=== PATIENT | female | born 1980 | race Caucasian/White ===

== ENCOUNTER 2016-11-22 20:38 | Emergency (ER) | payer MEDICAID ==
[2016-11-22] MEDS ORDERED: SODIUM CHLORIDE 0.9% 1,000 ML IV ONE (21:49)
== END 2016-11-22 23:15 | disposition home or self-care (01) ==
DX: O21.0 Mild hyperemesis gravidarum (principal)

== ENCOUNTER 2016-12-12 14:31 | Emergency (ER) | payer MEDICAID ==
[2016-12-12] MEDS ORDERED: FLUCONAZOLE 100 MG TABLET PO STA (17:18)
[2016-12-12] MEDS ORDERED: FLUCONAZOLE 100 MG TABLET ONE (17:27)
== END 2016-12-12 17:31 | disposition home or self-care (01) ==
DX: O99.89 Other specified diseases and conditions complicating pregnancy, childbirth and the puerperium (principal); R10.9 Unspecified abdominal pain; O98.811 Other maternal infectious and parasitic diseases complicating pregnancy, first trimester; B37.3 Candidiasis of vulva and vagina; Z3A.00 Weeks of gestation of pregnancy not specified; O99.331 Smoking (tobacco) complicating pregnancy, first trimester; F17.200 Nicotine dependence, unspecified, uncomplicated; Z87.442 Personal history of urinary calculi
CPT/HCPCS: 81001; 81025; 87210; 87491; 87591; 99283; A9270

== ENCOUNTER 2016-12-19 12:26 | Outpatient (CLI) | payer MEDICAID | END 2016-12-19 12:27 | disposition home or self-care (01) | DX: Z36 Encounter for antenatal screening of mother (principal) ==

== ENCOUNTER 2017-07-24 20:34 | Emergency (ER) | payer MEDICAID ==
[2017-07-24 21:02] LABS: BILIRUBIN,URINE NEGATIVE (NEGATIVE)
[2017-07-24 21:04] LABS: HCG UR QUAL NEGATIVE; UA w/ MICROSCOPIC CHARGE YES
[2017-07-24 21:13] LABS: UR CULTURE IF IND NOT INDICATED; WBC,URINE >25 /HPF (0-5)
[2017-07-24] MEDS ORDERED: SODIUM CHLORIDE 0.9% 1,000 ML IV STA (21:16)
[2017-07-24 21:27] LABS: BASOPHILS # (AUTO) 0.1 10^3/uL (0.0-0.1); BASOPHILS % (AUTO) 0.5 %; EOSINOPHILS % (AUTO) 0.1 %; HCT - HEMATOCRIT 39.3 % (37.0-47.0); HGB - HEMOGLOBIN 13.2 g/dL (12.0-16.0); LYMPHOCYTES % (AUTO) 6.7 %; MEAN CORPUSCULAR HEMOGLOBIN 29.7 pg (27.0-31.0); MEAN CORPUSCULAR HGB CONC 33.6 g/dL (32.0-36.0); MEAN CORPUSCULAR VOLUME 88.3 fL (81.0-99.0); MEAN PLATELET VOLUME 7.1 fL (7.9-10.8); MONOCYTES % (AUTO) 6.5 %; NEUTROPHILS # (AUTO) 13.2 10^3/uL (1.5-6.6); NEUTROPHILS % (AUTO) 86.2 %; RED BLOOD COUNT 4.45 10^6/uL (4.20-5.40); RED CELL DISTRIBUTION WIDTH 13.6 % (12.0-15.0); UNCORRECTED WHITE BLOOD COUNT 15.3 x10^3/uL; WHITE BLOOD COUNT 15.3 x10^3/uL (4.8-10.8)
--- NOTE | 2017-07-24 21:33 | ED Physician Documentation ---
PD HPI ABD PAIN - Stated complaint Stated Complaint: LEFT SIDE ABD PX - Chief complaint Chief Complaint: Abd Pain - History obtained from History obtained from: Patient - History of Present Illness Timing - onset: Last night Pain level now: 8 Quality: Pain Location: LUQ, Other Radiation: Left flank Improved by: Laying still Worsened by: Moving Associated symptoms: Fever (subjective (did not take temperature at home, but sweats and chills, feels like she might have had fevers today)), Nausea. 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 denies: Vomiting : reports: Frequency. denies: Dysuria Musculoskeletal: reports: Back pain PD PAST MEDICAL HISTORY - Past Medical History Past Medical History: Yes : Kidney stones - Past Surgical History Past Surgical History: Yes Derm: Skin cancer surgery - Present Medications Home Medications: Ambulatory Orders Medication Instructions Recorded Confirmed Ciprofloxacin HCl [Cipro] 500 mg PO BID #19 tablet 07/24/17 - Allergies Allergies/Adverse Reactions: Allergies Allergy/AdvReac Type Severity Reaction Status Date / Time amoxicillin Allergy Anaphylaxis Verified 07/24/17 20:42 Penicillins Allergy Anaphylaxis Verified 07/24/17 20:42 - Social History Does the pt smoke?: Yes Smoking Status: Current every day smoker Does the pt drink ETOH?: No Does the pt have substance abuse?: No - Immunizations Immunizations are current?: Yes PD ED PE NORMAL - Vitals Vital signs reviewed: Yes - General General: Alert and oriented X 3, Well developed/nourished, Other (appears uncomfortable) - HEENT HEENT: Moist mucous membranes - Neck Neck: Supple, no meningeal sign - Cardiac Cardiac: No murmur - Respiratory Respiratory: No respiratory distress - Abdomen Abdomen: Soft, Non distended, Other (mild LUQ tenderness without rebound or guarding) - Extremities Extremities: No edema PD ED PE EXPANDED - Cardiac Cardiac: Tachy, Regular Rhythm - Back Back: CVA TTP left Results - Vitals Vitals: Vital Signs - 24 hr 07/24/17 07/24/17 07/24/17 20:37 22:33 23:36 Temperature 37.7 C H 36.9 C Heart Rate 118 H Respiratory 19 17 16 Rate Blood Pressure 128/69 O2 Saturation 99 07/25/17 00:06 Temperature Heart Rate 109 H Respiratory 15 Rate Blood Pressure 120/69 O2 Saturation 97 Oxygen O2 Source Room air - Labs Labs: Laboratory Tests 07/24/17 07/24/17 07/24/17 21:00 21:24 21:24 WBC 15.3 H RBC 4.45 Hgb 13.2 Hct 39.3 MCV 88.3 MCH 29.7 MCHC 33.6 RDW 13.6 Plt Count 292 MPV 7.1 L Neut # 13.2 H Lymph # 1.0 L [place] # 1.0 Eos # 0.0 Baso # 0.1 Absolute Nucleated RBC 0.00 Nucleated RBCs 0.0 Sodium 135 Potassium 3.6 Chloride 103 Carbon Dioxide 25 Anion Gap 7.0 BUN 6 Creatinine 0.7 Estimated GFR (MDRD) 95 Glucose 103 H Calcium 8.9 Urine Color YELLOW Urine Clarity CLOUDY Urine pH 7.0 Ur Specific [place] 1.010 Urine Protein 100 H Urine Glucose (UA) NEGATIVE Urine Ketones NEGATIVE Urine Occult Blood LARGE H Urine Nitrite POSITIVE H Urine Bilirubin NEGATIVE Urine Urobilinogen 0.2 (NORMAL) Ur Leukocyte Esterase MODERATE H Urine RBC 6-10 H Urine WBC >25 H Ur Squamous Epith Cells MOD Squamous H Urine Bacteria Moderate H Ur Microscopic Review INDICATED Urine Culture Comments NOT INDICATED Urine HCG, Qual NEGATIVE 07/24/17 22:12 WBC RBC Hgb Hct MCV MCH MCHC RDW Plt Count MPV Neut # Lymph # [place] # Eos # Baso # Absolute Nucleated RBC Nucleated RBCs Sodium Potassium Chloride Carbon Dioxide Anion Gap BUN Creatinine Estimated GFR (MDRD) Glucose Calcium Urine Color YELLOW Urine Clarity CLOUDY Urine pH 7.5 Ur Specific [place] 1.015 Urine Protein 100 H Urine Glucose (UA) NEGATIVE Urine Ketones NEGATIVE Urine Occult Blood LARGE H Urine Nitrite POSITIVE H Urine Bilirubin NEGATIVE Urine Urobilinogen 0.2 (NORMAL) Ur Leukocyte Esterase LARGE H Urine RBC 11-25 H Urine WBC >25 H Ur Squamous Epith Cells RARE Squamous Urine Bacteria Few Ur Microscopic Review INDICATED Urine Culture Comments Urine HCG, Qual - Rads (name of study) CT A/P Radiology: Prelim report reviewed, See rad report PD MEDICAL DECISION MAKING - ED course Complexity details: reviewed old records, reviewed results, re-evaluated patient , considered differential, d/w patient Departure - Departure Disposition: 01 Home, Self Care Clinical Impression: Pyelonephritis Condition: Good Instructions: ED Kidney Infec Female Prescriptions: Ciprofloxacin HCl [Cipro] 500 mg PO BID #19 tablet Comments: Follow up with your primary care physician in 2-3 days if symptoms are not improving Discharge Date/Time: 07/25/17 00:38
[2017-07-24 21:36] LABS: CALCIUM 8.9 mg/dL (8.5-10.3); CREATININE 0.7 mg/dL (0.4-1.0); POTASSIUM 3.6 mmol/L (3.5-5.0)
[2017-07-24 22:17] LABS: BILIRUBIN,URINE NEGATIVE (NEGATIVE); PH,URINE 7.5 PH (5.0-7.5)
[2017-07-24 22:18] LABS: UA w/ MICROSCOPIC CHARGE YES
[2017-07-24 22:25] LABS: WBC,URINE >25 /HPF (0-5)
--- NOTE | 2017-07-24 22:38 | CT Preliminary Report ---
Exam: CT Abdomen/Pelvis W/O IMPRESSION: 1. Punctate stone near the left UVJ may be a phlebolith or a nonobstructing distal ureteral stone. 2. No hydronephrosis. No hydroureter. 3. Punctate nonobstructing right lower kidney stone. 4. No bowel obstruction. Appendix is normal. [facility] SITE ID: [id number]
--- NOTE | 2017-07-24 22:52 | CT Report ---
EXAM: CT ABDOMEN AND PELVIS (CT KUB) EXAM DATE: 07/24/2017 10:07 PM. CLINICAL HISTORY: Left-sided flank pain. COMPARISONS: None. TECHNIQUE: Routine axial helical CT imaging was performed through the abdomen and pelvis without IV c ontrast. Reconstructions: Coronal and sagittal. In accordance with CT protocol optimization, one or more of the following dose reduction techniques w ere utilized for this exam: automated exposure control, adjustment of mA and/or KV based on patient s ize, or use of iterative reconstructive technique. FINDINGS: Right Kidney/Ureter: Punctate right lower kidney stone noted.. No hydronephrosis or hydroureter. No d efinite renal mass within the confines of a non-contrast exam. Left Kidney/Ureter: No intrarenal stones. No definite hydronephrosis or hydroureter. There is a punct ate calcification near the left UVJ, which could represent a phlebolith or a potential nonobstructing left distal ureteral stone. No definite renal mass within the confines of a non-contrast exam. Abdominal Solid Organs: Abdominal parenchymal organs are without significant abnormality within the c onfines of a noncontrast exam. Bowel: No evidence of bowel obstruction. Appendix: Normal. Lymph Nodes: No definite pathologic lymphadenopathy. Fluid: No significant ascites. Vasculature: Normal caliber aorta. Pelvis: No bladder stones. Visualized pelvic organs are without significant abnormality within the co nfines of a noncontrast exam. Bones: No definite suspicious bony lesions demonstrated. Lower Chest: No significant lung base consolidation or effusion. IMPRESSION: 1. Punctate calcification near the left UVJ may be a phlebolith or a nonobstructing distal ureteral s tone. 2. No hydronephrosis. No hydroureter. 3. Punctate nonobstructing right lower kidney stone. 4. No bowel obstruction. Appendix is normal. [facility] Referring Provider Line: [phone] SITE ID: [id number]
[2017-07-24] MEDS ORDERED: CIPROFLOXACIN 400 MG/200 ML 200 ML IV ONE ×2 (23:11→23:19)
[2017-07-25 00:07] VITALS: BP 120/69
[2017-07-25] MEDS ORDERED: IBUPROFEN 600 MG TABLET PO STA (00:22)
[2017-07-25] MEDS ORDERED: IBUPROFEN 600 MG TABLET PO ONE (00:27)
== END 2017-07-25 00:38 | disposition home or self-care (01) ==
LOC: ED 20:34
DX: N12 Tubulo-interstitial nephritis, not specified as acute or chronic (principal); F17.200 Nicotine dependence, unspecified, uncomplicated; Z87.442 Personal history of urinary calculi
CPT/HCPCS: 36415; 74176; 80048; 81001; 81025; 85025; 96361; 96365; 99284; A9270; 81003; 87086

== ENCOUNTER 2017-07-26 14:57 | Emergency (ER) | payer MEDICAID ==
[2017-07-26] MEDS ORDERED: HYDROmorphone 1 MG/ML SYRINGE IVP STA (17:06)
[2017-07-26] MEDS ORDERED: SODIUM CHLORIDE 0.9% 1,000 ML IV ONE (17:06)
[2017-07-26] MEDS ORDERED: ONDANSETRON 4 MG/2 ML VIAL IVP STA (17:06)
--- NOTE | 2017-07-26 17:09 | ED Physician Documentation ---
PD HPI ABD PAIN - Stated complaint Stated Complaint: L SIDE ABD PX - Chief complaint Chief Complaint: Abd Pain - History obtained from History obtained from: Patient - History of Present Illness Timing - onset: Other (36-year-old woman with history of renal colic and repair of a ruptured kidney a few years ago presents with 3 days of left flank and abdominal pain associated with fevers, chills, nausea. She was seen here 2 days ago, but diagnosed with pyelonephritis by urinalysis and CT, the CT did demonstrate a possible left distal ureteral stone but without signs of obstruction. There is no culture data in the computer. She is not particularly worse but she is not better either, she has no appetite, is nauseous, also constipated now. Continues to have the pain.) Review of Systems Constitutional: reports: Chills, Fatigue. denies: Fever Cardiac: denies: Chest pain / pressure, Palpitations Respiratory: denies: Dyspnea, Cough GI: reports: Abdominal Pain, Nausea, Vomiting, Constipation. denies: Diarrhea : denies: Dysuria PD PAST MEDICAL HISTORY - Past Medical History Past Medical History: Yes : Kidney stones - Past Surgical History Past Surgical History: Yes Derm: Skin cancer surgery - Present Medications Home Medications: Ambulatory Orders Medication Instructions Recorded Confirmed Ciprofloxacin HCl [Cipro] 500 mg PO BID #19 tablet 07/24/17 07/26/17 HYDROcod/ACETAM 5/325 [[place] 5/325] 1 - 2 ea PO Q6H PRN #15 tablet 07/26/17 Ondansetron HCl [Zofran] 4 mg PO Q6H PRN #10 tablet 07/26/17 Sulfamethoxazole/Trimethoprim 1 each PO BID 7 Days 07/26/17 [Sulfamethoxazole-Tmp Ds Tablet] - Allergies Allergies/Adverse Reactions: Allergies Allergy/AdvReac Type Severity Reaction Status Date / Time amoxicillin Allergy Anaphylaxis Verified 07/26/17 15:20 Penicillins Allergy Anaphylaxis Verified 07/26/17 15:20 - Social History Does the pt smoke?: Yes Smoking Status: Current every day smoker Does the pt drink ETOH?: No Does the pt have substance abuse?: No - Family History Family history: reports: Non contributory - Immunizations Immunizations are current?: Yes - POLST Patient has POLST: No PD ED PE NORMAL - Vitals Vital signs reviewed: Yes - General General: Alert and oriented X 3, No acute distress - HEENT HEENT: PERRL, EOMI - Neck Neck: Supple, no meningeal sign, No bony TTP - Cardiac Cardiac: RRR, No murmur - Respiratory Respiratory: No respiratory distress, Clear bilaterally - Abdomen Abdomen: Other (Mild left-sided abdominal tenderness without surgical signs, also mild left flank tenderness) - Back Back: No spinal TTP - Derm Derm: Normal color, Warm and dry - Extremities Extremities: No edema, No calf tenderness / cord - Neuro Neuro: Alert and oriented X 3, Normal speech - Psych Psych: Normal mood, Normal affect Results - Vitals Vitals: Vital Signs - 24 hr 07/26/17 15:16 Temperature 36.5 C Heart Rate 85 Respiratory 18 Rate Blood Pressure 98/62 O2 Saturation 100 Oxygen O2 Source Room air - Labs Labs: Laboratory Tests 07/26/17 07/26/17 07/26/17 17:11 17:25 17:25 WBC 9.0 RBC 4.43 Hgb 13.3 Hct 39.2 MCV 88.6 MCH 29.9 MCHC 33.8 RDW 13.2 Plt Count 253 MPV 6.8 L Neut # 6.4 Lymph # 1.5 [place] # 1.0 Eos # 0.0 Baso # 0.1 Absolute Nucleated RBC 0.00 Nucleated RBCs 0.0 Sodium 136 Potassium 3.5 Chloride 104 Carbon Dioxide 24 Anion Gap 8.0 BUN 6 Creatinine 0.5 Estimated GFR (MDRD) 140 Glucose 97 Calcium 8.5 Total Bilirubin 0.8 AST 13 ALT 11 Alkaline Phosphatase 63 Total Protein 7.1 Albumin 4.0 Globulin 3.1 Albumin/Globulin Ratio 1.3 Lipase 15 L Urine Color YELLOW Urine Clarity HAZY Urine pH 6.0 Ur Specific [place] 1.025 Urine Protein NEGATIVE Urine Glucose (UA) NEGATIVE Urine Ketones 40 H Urine Occult Blood SMALL H Urine Nitrite NEGATIVE Urine Bilirubin NEGATIVE Urine Urobilinogen 0.2 (NORMAL) Ur Leukocyte Esterase TRACE H Urine RBC 6-10 H Urine WBC >25 H Urine WBC Clumps PRESENT Ur Squamous Epith Cells MANY Squamous H Urine Bacteria Few Urine Mucus Marked Strands Ur Microscopic Review INDICATED Urine Culture Comments NOT INDICATED 07/26/17 17:54 WBC RBC Hgb Hct MCV MCH MCHC RDW Plt Count MPV Neut # Lymph # [place] # Eos # Baso # Absolute Nucleated RBC Nucleated RBCs Sodium Potassium Chloride Carbon Dioxide Anion Gap BUN Creatinine Estimated GFR (MDRD) Glucose Calcium Total Bilirubin AST ALT Alkaline Phosphatase Total Protein Albumin Globulin Albumin/Globulin Ratio Lipase Urine Color YELLOW Urine Clarity CLEAR Urine pH 6.0 Ur Specific [place] >=1.030 H Urine Protein TRACE Urine Glucose (UA) NEGATIVE Urine Ketones >=80 H Urine Occult Blood SMALL H Urine Nitrite NEGATIVE Urine Bilirubin NEGATIVE Urine Urobilinogen 0.2 (NORMAL) Ur Leukocyte Esterase NEGATIVE Urine RBC 0-5 Urine WBC 6-10 H Urine WBC Clumps Ur Squamous Epith Cells MOD Squamous H Urine Bacteria Few Urine Mucus Moderate Strands Ur Microscopic Review INDICATED Urine Culture Comments NOT INDICATED PD MEDICAL DECISION MAKING - ED course ED course: 36-year-old woman with recent diagnosis of pyelonephritis, no culture data available presents with persistent generalized symptoms of fatigue, flank pain, nausea, and dehydration. She felt better after the administration of IV fluids , Dilaudid, and Zofran here. Initial urinalysis was contaminated this was followed by an in and out cath after the patient requested it, "I always have skin cells in my urine." This also had squamous cells in it but I ordered for to be cultured. Regardless we will switch her antibiotics. Her white blood cell count is better than the other day and she needs a work note and medications for her symptoms. Departure - Departure Disposition: 01 Home, Self Care Clinical Impression: Pyelonephritis Condition: Good Record reviewed to determine appropriate education?: Yes Instructions: Pyelonephritis Dc Prescriptions: HYDROcod/ACETAM 5/325 [[place] 5/325] 1 - 2 ea PO Q6H PRN #15 tablet PRN Reason: Pain Sulfamethoxazole/Trimethoprim [Sulfamethoxazole-Tmp Ds Tablet] 1 each PO BID 7 Days Ondansetron HCl [Zofran] 4 mg PO Q6H PRN #10 tablet PRN Reason: Nausea / Vomiting Comments: Stop the antibiotic you were on (ciprofloxacin/Cipro) and start the new antibiotic. Return if worse. Otherwise you should be feeling better over the next couple of days. Follow-up with your doctor early next week. Forms: Activity restrictions
[2017-07-26 17:16] LABS: BILIRUBIN,URINE NEGATIVE (NEGATIVE)
[2017-07-26 17:26] LABS: UA w/ MICROSCOPIC CHARGE YES; UR CULTURE IF IND NOT INDICATED; WBC,URINE >25 /HPF (0-5)
[2017-07-26 17:33] LABS: BASOPHILS # (AUTO) 0.1 10^3/uL (0.0-0.1); BASOPHILS % (AUTO) 1.1 %; EOSINOPHILS % (AUTO) 0.5 %; HCT - HEMATOCRIT 39.2 % (37.0-47.0); HGB - HEMOGLOBIN 13.3 g/dL (12.0-16.0); LYMPHOCYTES # (AUTO) 1.5 10^3/uL (1.5-3.5); LYMPHOCYTES % (AUTO) 16.5 %; MEAN CORPUSCULAR HEMOGLOBIN 29.9 pg (27.0-31.0); MEAN CORPUSCULAR HGB CONC 33.8 g/dL (32.0-36.0); MEAN CORPUSCULAR VOLUME 88.6 fL (81.0-99.0); MEAN PLATELET VOLUME 6.8 fL (7.9-10.8); MONOCYTES % (AUTO) 10.8 %; NEUTROPHILS # (AUTO) 6.4 10^3/uL (1.5-6.6); NEUTROPHILS % (AUTO) 71.1 %; RED BLOOD COUNT 4.43 10^6/uL (4.20-5.40); RED CELL DISTRIBUTION WIDTH 13.2 % (12.0-15.0)
[2017-07-26] MEDS ORDERED: HYDROmorphone 1 MG/ML SYRINGE ONE (17:34)
[2017-07-26] MEDS ORDERED: ONDANSETRON 4 MG/2 ML VIAL ONE (17:34)
[2017-07-26 17:47] LABS: ALBUMIN/GLOBULIN RATIO 1.3 (1.0-2.2); BILIRUBIN,TOTAL 0.8 mg/dL (0.2-1.0); CALCIUM 8.5 mg/dL (8.5-10.3); CREATININE 0.5 mg/dL (0.4-1.0); POTASSIUM 3.5 mmol/L (3.5-5.0); TOTAL PROTEIN 7.1 g/dL (6.7-8.2)
[2017-07-26 18:13] LABS: BILIRUBIN,URINE NEGATIVE (NEGATIVE); UA w/ MICROSCOPIC CHARGE YES
[2017-07-26 18:24] LABS: UR CULTURE IF IND NOT INDICATED
[2017-07-26] MEDS ORDERED: SULFAMETH/TRIMETH DS 800/160 MG TABLET PO STA (18:45)
[2017-07-26] MEDS ORDERED: SULFAMETH/TRIMETH DS 800/160 MG TABLET PO ONE (18:54)
[2017-07-26 19:00] VITALS: BP 109/68
== END 2017-07-26 18:59 | disposition home or self-care (01) ==
LOC: ED 14:57
DX: N12 Tubulo-interstitial nephritis, not specified as acute or chronic (principal); F17.200 Nicotine dependence, unspecified, uncomplicated; Z87.442 Personal history of urinary calculi
CPT/HCPCS: 36415; 51701; 80053; 81001; 83690; 85025; 87086; 96374; 96375; 99283; 99284; A9270; J1170; 81003

== ENCOUNTER 2019-08-15 16:30 | Emergency (ER) | payer MEDICAID ==
[2019-08-15 16:53] LABS: BILIRUBIN,URINE NEGATIVE (NEGATIVE); GLUCOSE, URINE (UA) NEGATIVE (NEGATIVE); KETONES,URINE (UA) NEGATIVE (NEGATIVE); LEUKOCYTE ESTERASE, URINE MODERATE (NEGATIVE); NITRITE,URINE POSITIVE (NEGATIVE); OCCULT BLOOD,URINE MODERATE (NEGATIVE); PROTEIN,URINE TRACE mg/dL (NEGATIVE); UROBILINOGEN,URINE 0.2 (NORMAL) E.U./dL (NORMAL)
[2019-08-15 16:56] LABS: CLARITY,URINE CLEAR (CLEAR); HCG UR QUAL NEGATIVE
[2019-08-15 17:12] LABS: RBC,URINE 0-5 /HPF (0-5); SQUAMOUS EPITHELIAL CELL,UR NONE SEEN (<= Few)
[2019-08-15 17:13] LABS: BACTERIA,URINE Rare /HPF (None Seen)
[2019-08-15] MEDS ORDERED: SODIUM CHLORIDE 0.9% 1,000 ML IV ONE (18:28)
[2019-08-15] MEDS ORDERED: ONDANSETRON 4 MG/2 ML VIAL IVP STA ×2 (18:28→20:42)
[2019-08-15] MEDS ORDERED: HYDROmorphone 1 MG/ML CARPUJECT IVP STA ×2 (18:28→20:42)
[2019-08-15] MEDS ORDERED: CIPROFLOXACIN 400 MG/200 ML 200 ML IV ONE (18:31)
--- NOTE | 2019-08-15 18:31 | ED Physician Documentation ---
PD HPI ABD PAIN - Stated complaint Stated Complaint: R SIDE PX - Chief complaint Chief Complaint: Abd Pain - History obtained from History obtained from: Patient - History of Present Illness Timing - onset: Other (2 to 3 days of right flank pain associated with fevers chills and body aches. No specific urinary complaints. She has a history of renal colic with renal rupture a few years ago.) Review of Systems Ten Systems: 10 systems reviewed and negative Constitutional: reports: Fever, Chills, Myalgias, Fatigue GI: reports: Nausea, Vomiting. denies: Abdominal Pain, Diarrhea : denies: Dysuria, Frequency PD PAST MEDICAL HISTORY - Past Medical History : Kidney stones - Past Surgical History Past Surgical History: Yes Derm: Skin cancer surgery - Present Medications Home Medications: Ambulatory Orders Medication Instructions Recorded Confirmed Ciprofloxacin HCl [Cipro] 500 mg PO BID #19 tablet 07/24/17 07/26/17 HYDROcod/ACETAM 5/325 [[place] 5/325] 1 - 2 ea PO Q6H PRN #15 tablet 07/26/17 Ondansetron HCl [Zofran] 4 mg PO Q6H PRN #10 tablet 07/26/17 Sulfamethoxazole/Trimethoprim 1 each PO BID 7 Days tablet 07/26/17 [Sulfamethoxazole-Tmp Ds Tablet] Ciprofloxacin HCl [Cipro] 500 mg PO BID #20 tablet 08/15/19 Hydrocodone/Acetaminophen 1 - 2 each PO Q6H PRN #14 tablet 08/15/19 [Hydrocodon-Acetaminophen 5-325] Metoclopramide [Reglan] 10 mg PO Q6H PRN #20 tablet 08/15/19 Tamsulosin [Flomax] 0.4 mg PO DAILY #14 capsule 08/15/19 - Allergies Allergies/Adverse Reactions: Allergies Allergy/AdvReac Type Severity Reaction Status Date / Time amoxicillin Allergy Anaphylaxis Verified 08/15/19 16:37 Penicillins Allergy Anaphylaxis Verified 08/15/19 16:37 - Social History Does the pt smoke?: Yes Smoking Status: Current every day smoker Does the pt drink ETOH?: No Does the pt have substance abuse?: No - Family History Family history: reports: Non contributory - Immunizations Immunizations are current?: Yes - POLST Patient has POLST: No PD ED PE NORMAL - Vitals Vital signs reviewed: Yes - General General: Alert and oriented X 3, No acute distress - HEENT HEENT: PERRL, EOMI - Neck Neck: Supple, no meningeal sign, No bony TTP - Cardiac Cardiac: RRR, No murmur - Respiratory Respiratory: No respiratory distress, Clear bilaterally - Abdomen Abdomen: Normal bowel sounds, Soft, Other (Tender to both the right flank and right upper quadrant) - Back Back: No spinal TTP - Derm Derm: Normal color, Warm and dry - Neuro Neuro: Alert and oriented X 3, Normal speech Results - Vitals Vitals: Vital Signs - 24 hr 08/15/19 08/15/19 16:37 20:20 Temperature 37.1 C 37.3 C Heart Rate 109 H 98 Respiratory 17 16 Rate Blood Pressure 119/59 L 111/52 L O2 Saturation 100 100 Oxygen O2 Source Room air - Labs Labs: Laboratory Tests 08/15/19 08/15/19 08/15/19 16:43 19:55 19:55 WBC 19.2 H RBC 4.14 L Hgb 12.3 Hct 38.6 MCV 93.2 MCH 29.7 MCHC 31.9 L RDW 13.2 Plt Count 211 MPV 9.1 Neut # (Auto) 17.0 H Lymph # (Auto) 1.2 L [place] # (Auto) 0.8 Eos # (Auto) 0.0 Baso # (Auto) 0.1 Absolute Nucleated RBC 0.00 Nucleated RBC % 0.0 Sodium 136 Potassium 3.4 L Chloride 106 Carbon Dioxide 22 Anion Gap 8.0 BUN 7 Creatinine 0.6 Estimated GFR (MDRD) 112 Glucose 144 H Calcium 7.8 L Urine Color YELLOW Urine Clarity CLEAR Urine pH 6.0 Ur Specific [place] <=1.005 Urine Protein TRACE Urine Glucose (UA) NEGATIVE Urine Ketones NEGATIVE Urine Occult Blood MODERATE H Urine Nitrite POSITIVE H Urine Bilirubin NEGATIVE Urine Urobilinogen 0.2 (NORMAL) Ur Leukocyte Esterase MODERATE H Urine RBC 0-5 Urine WBC >25 H Ur Squamous Epith Cells NONE SEEN Urine Bacteria Rare Ur Microscopic Review INDICATED Urine Culture Comments INDICATED Urine HCG, Qual NEGATIVE - Rads (name of study) CT KUB Radiology: EMP read contemporaneously (1. Mild right perinephric stranding, enlargement of the right kidney and minimal hydronephrosis being caused by a right proximal ureteral calculus measuring 3 mm. A few tiny 2-3 mm renal calculi.) PD MEDICAL DECISION MAKING - ED course ED course: 38-year-old woman with history of recurrent renal colic presents with pyelonephritis. CT done to rule out send obstructing stone and did show a small obstructing stone on the right. Case was discussed by phone with Dr. Jatinder lemons, urology in [place] at 8:30 PM. We discussed her fever at home, white blood cell count of 19,000, the CT findings and the urine findings. He felt that given the stone was small she can safely be discharged on antibiotics to follow- up with them. Patient was still having a lot of pain and meds were redosed. She had already received IV Cipro. It was difficult to control her pain though, she received a few more doses of pain medication. She was still very uncomfortable. I spoke with Dr. Pacheco in [place] again. This time around 9:30 PM. He still felt there was no reason for urgent transfer, and declined to accept the patient in transfer. Patient was feeling a little better, and requested discharge. Given the circumstances I did offer either observation in the hospital here for pain co ntrol, or calling another facility for potential urologic transfer. She wanted to go home and follow-up as an outpatient. Departure - Departure Disposition: 01 Home, Self Care Clinical Impression: Pyelonephritis, Renal colic Condition: Good Record reviewed to determine appropriate education?: Yes Instructions: ED Stone Renal W Colic, Pyelonephritis Dc Prescriptions: Ciprofloxacin HCl [Cipro] 500 mg PO BID #20 tablet Hydrocodone/Acetaminophen [Hydrocodon-Acetaminophen 5-325] 1 - 2 each PO Q6H PRN #14 tablet PRN Reason: pain Metoclopramide [Reglan] 10 mg PO Q6H PRN #20 tablet PRN Reason: nausea or headache Tamsulosin [Flomax] 0.4 mg PO DAILY #14 capsule Comments: Return immediately for new or worsening symptoms or fever at home. Otherwise follow-up with Dr. Pacheco, the urologist. His office knows about your case. The phone number there is [phone].
--- NOTE | 2019-08-15 19:25 | CT Report ---
Reason: R flank pain, H/O stone Procedure Date: 08/15/2019 Accession Number: [id number] / [id number] Procedure: CT - Abdomen/Pelvis WO CPT Code: FULL RESULT: EXAM: CT ABDOMEN AND PELVIS (CT KUB) EXAM DATE: 08/15/2019 06:46 PM. CLINICAL HISTORY: Right flank pain, history of stone. COMPARISONS: ABDOMEN/PELVIS W/O 07/24/2017 9:55 PM. TECHNIQUE: Routine axial helical CT imaging was performed through the abdomen and pelvis without IV contrast. Reconstructions: Coronal and sagittal. In accordance with CT protocol optimization, one or more of the following dose reduction techniques were utilized for this exam: automated exposure control, adjustment of mA and/or KV based on patient size, or use of iterative reconstructive technique. FINDINGS: Lung bases: No acute findings. Liver: Unremarkable. Gallbladder: Unremarkable. Bile ducts: Unremarkable. Pancreas: Unremarkable. Spleen: Unremarkable. Adrenals: Unremarkable. Kidneys: A few tiny bilateral renal calculi are seen measuring 2-3 mm. Mild right perinephric stranding and mild enlargement of the right kidney compared to the left. There is a right proximal ureteral calculus measuring 3 mm. There appears to be a minimal amount of right hydronephrosis. No left-sided hydronephrosis. Bowel: Normal appendix. No acute bowel findings are seen. No free fluid or free air. Pelvis: The bladder and remaining pelvic organs appear unremarkable. Vasculature: No acute findings. Bones: No acute bone findings. IMPRESSION: 1. Mild right perinephric stranding, enlargement of the right kidney and minimal hydronephrosis being caused by a right proximal ureteral calculus measuring 3 mm. A few tiny 2-3 mm renal calculi. 2. See above. [facility]
[2019-08-15 19:59] LABS: BASOPHILS # (AUTO) 0.1 10^3/uL (0.0-0.1); BASOPHILS % (AUTO) 0.4 %; EOSINOPHILS % (AUTO) 0.1 %; HGB - HEMOGLOBIN 12.3 g/dL (12.0-16.0); LYMPHOCYTES # (AUTO) 1.2 10^3/uL (1.5-3.5); LYMPHOCYTES % (AUTO) 6.3 %; MEAN CORPUSCULAR HEMOGLOBIN 29.7 pg (27.0-31.0); MEAN CORPUSCULAR HGB CONC 31.9 g/dL (32.0-36.0); MEAN CORPUSCULAR VOLUME 93.2 fL (81.0-99.0); MEAN PLATELET VOLUME 9.1 fL (7.9-10.8); MONOCYTES # (AUTO) 0.8 10^3/uL (0.0-1.0); MONOCYTES % (AUTO) 4.2 %; NEUTROPHILS % (AUTO) 88.3 %; PLT - PLATELET COUNT 211 10^3/uL (130-450); RED BLOOD COUNT 4.14 10^6/uL (4.20-5.40); RED CELL DISTRIBUTION WIDTH 13.2 % (12.0-15.0); WHITE BLOOD COUNT 19.2 x10^3/uL (4.8-10.8)
[2019-08-15 20:08] LABS: CALCIUM 7.8 mg/dL (8.5-10.3); CREATININE 0.6 mg/dL (0.4-1.0)
[2019-08-15 20:21] VITALS: BP 111/52
[2019-08-15] MEDS ORDERED: TAMSULOSIN 0.4 MG CAPSULE PO STA (20:34)
[2019-08-15] MEDS ORDERED: KETOROLAC 30 MG/ML VIAL IVP STA (20:42)
[2019-08-15] MEDS ORDERED: SODIUM CHLORIDE 0.9% IV STA (21:18)
[2019-08-15] MEDS ORDERED: LIDOCAINE MPF 2% IV STA (21:18)
[2019-08-15] MEDS ORDERED: METOCLOPRAMIDE 10 MG/2 ML VIAL IVP STA (21:18)
[2019-08-15] MEDS ORDERED: HYDROcod/ACET 5/325 Prepack 4 PO STA (21:52)
== END 2019-08-15 22:12 | disposition home or self-care (01) ==
LOC: ED 16:30
DX: N12 Tubulo-interstitial nephritis, not specified as acute or chronic (principal); N13.2 Hydronephrosis with renal and ureteral calculous obstruction; F17.200 Nicotine dependence, unspecified, uncomplicated
CPT/HCPCS: 36415; 74176; 80048; 81001; 81025; 85025; 87086; 87181; 96365; 96367; 96375; 99284; 99285; A9270; J1170; J2765; J7040; 81003

== ENCOUNTER 2019-08-26 18:12 | Outpatient (CLI) | payer MEDICAID ==
--- NOTE | 2019-08-28 11:00 | Ultrasound Report ---
Reason: WORSENING PAIN WITH URETERAL STENT IN PLACE Procedure Date: 08/26/2019 Accession Number: [id number] / [id number] Procedure: US - Retroperitoneal CPT Code: FULL RESULT: EXAM: RENAL ULTRASOUND EXAM DATE: 08/26/2019 05:00 PM. CLINICAL HISTORY: Worsening pain with ureteral stent in place. COMPARISON: ABDOMEN/PELVIS W/O 08/15/2019 6:40 PM. TECHNIQUE: Real-time scanning was performed with static images obtained. FINDINGS: Right Kidney: 10.9 cm. There is mild pelviectasis. An echogenic structure in the region of the renal pelvis is not fully delineated but felt to likely represent the reported ureteral stent. Visualization is limited by body habitus and bowel gas. No definite calculi are noted and no definite solid renal mass is seen. Left Kidney: 11.1 cm. Normal echotexture with no stones, contour-deforming masses, or hydronephrosis. Bladder: Ureteral jets are not identified. The prevoid bladder volume was 167 cc. The postvoid bladder volume was 2 cc. Other: Ureteral stent is seen in the distal ureter and its distal loop is seen within the bladder, distal hydroureter is noted. IMPRESSION: Mild right hydronephrosis with ureteral stent seen in distal ureter and bladder. Exact positioning of the proximal ureteral stent pigtail loop is not established. [facility]
== END 2019-08-26 18:13 | disposition home or self-care (01) ==
LOC: DI 18:12
PROVIDERS: ATTEND Physician Assistant
DX: N13.30 Unspecified hydronephrosis (principal); Z96.0 Presence of urogenital implants
CPT/HCPCS: 76770

== ENCOUNTER 2019-09-13 15:24 | Emergency (ER) | payer MEDICAID ==
--- NOTE | 2019-09-13 15:56 | ED Physician Documentation ---
History of Present Illness - Stated complaint Stated Complaint: LOWER BACK AND ABD PX - Chief complaint Chief Complaint: Abd Pain - Additonal information Additional information: This is a 38-year-old female with history of kidney stones who presents with severe back pain. Patient states that she recently had her R ureter stented twice, for a kidney stone, this was done by Dr. Mendoza in [place]. She had her stent removed this morning, and sine then she has had severe pain on her front right abdomen rating to her back since then. She states that she has had stents in the left before and there removal did not feel like this. She denies fever or chills. She called her urologist office reportedly and they told her that she should be reevaluated in [place], but she became scared so she came here instead. Review of Systems Constitutional: denies: Fever Cardiac: denies: Chest pain / pressure GI: reports: Abdominal Pain : reports: Other (Recent ureteral stent) Skin: denies: Rash Neurologic: denies: Generalized weakness Immunocompromised: denies: Immunocompromised PD PAST MEDICAL HISTORY - Past Medical History : Kidney stones - Past Surgical History Past Surgical History: Yes Derm: Skin cancer surgery - Present Medications Home Medications: Ambulatory Orders Medication Instructions Recorded Confirmed Ciprofloxacin HCl [Cipro] 500 mg PO BID #19 tablet 07/24/17 07/26/17 HYDROcod/ACETAM 5/325 [[place] 5/325] 1 - 2 ea PO Q6H PRN #15 tablet 07/26/17 Ondansetron HCl [Zofran] 4 mg PO Q6H PRN #10 tablet 07/26/17 Sulfamethoxazole/Trimethoprim 1 each PO BID 7 Days tablet 07/26/17 [Sulfamethoxazole-Tmp Ds Tablet] Ciprofloxacin HCl [Cipro] 500 mg PO BID #20 tablet 08/15/19 Hydrocodone/Acetaminophen 1 - 2 each PO Q6H PRN #14 tablet 08/15/19 [Hydrocodon-Acetaminophen 5-325] Metoclopramide [Reglan] 10 mg PO Q6H PRN #20 tablet 08/15/19 Tamsulosin [Flomax] 0.4 mg PO DAILY #14 capsule 08/15/19 Cefdinir 300 mg PO BID #14 capsule 09/13/19 Ondansetron Odt [Zofran] 4 mg TL Q6H PRN #10 tablet 09/13/19 - Allergies Allergies/Adverse Reactions: Allergies Allergy/AdvReac Type Severity Reaction Status Date / Time amoxicillin Allergy Anaphylaxis Verified 09/13/19 15:37 Penicillins Allergy Anaphylaxis Verified 09/13/19 15:37 - Social History Does the pt smoke?: Yes Smoking Status: Current every day smoker Does the pt drink ETOH?: No Does the pt have substance abuse?: No - Immunizations Immunizations are current?: Yes - POLST Patient has POLST: No PD ED PE NORMAL - Vitals Vital signs reviewed: Yes - General General: Alert and oriented X 3 - HEENT HEENT: PERRL - Neck Neck: Supple, no meningeal sign - Cardiac Cardiac: RRR - Respiratory Respiratory: No respiratory distress, Clear bilaterally - Abdomen Abdomen: Soft, Other (Right-sided tenderness, no guarding.) - Back Back: Other (Mild right sided CVA tenderness) - Derm Derm: Warm and dry - Extremities Extremities: No deformity - Neuro Neuro: Alert and oriented X 3 Results - Vitals Vitals: Oxygen O2 Source Room air - Labs Labs: Microbiology 09/13/19 15:54 Urine Culture - Preliminary Urine,Clean Catch CULTURE IN PROGRESS. RESULTS TO FOLLOW. Laboratory Tests 09/13/19 09/13/19 09/13/19 15:54 16:11 16:11 WBC 15.7 H RBC 4.74 Hgb 14.1 Hct 42.8 MCV 90.3 MCH 29.7 MCHC 32.9 RDW 13.3 Plt Count 364 MPV 8.7 Neut # (Auto) 12.1 H Lymph # (Auto) 2.2 [place] # (Auto) 0.9 Eos # (Auto) 0.3 Baso # (Auto) 0.1 Absolute Nucleated RBC 0.00 Nucleated RBC % 0.0 Sodium 140 Potassium 4.0 Chloride 105 Carbon Dioxide 26 Anion Gap 9.0 BUN 11 Creatinine 0.6 Estimated GFR (MDRD) 112 Glucose 105 H Calcium 9.9 Total Bilirubin 0.8 AST 14 ALT 19 Alkaline Phosphatase 79 Total Protein 7.8 Albumin 4.8 Globulin 3.0 Albumin/Globulin Ratio 1.6 Lipase 34 Urine Color ORANGE Urine Clarity HAZY Urine pH Ur Specific [place] Urine Protein Urine Glucose (UA) Urine Ketones Urine Occult Blood Urine Nitrite Urine Bilirubin Urine Urobilinogen Ur Leukocyte Esterase Urine RBC 11-25 H Urine WBC 6-10 H Ur Squamous Epith Cells FEW Squamous Urine Bacteria Moderate H Ur Microscopic Review INDICATED Urine Culture Comments INDICATED Urine HCG, Qual NEGATIVE - Rads (name of study) CT abd/pelvis W Radiology: Other (Dilated R renal pelvis and ureter, with no distal obstructing mass or stone. Consider pyelitis) PD MEDICAL DECISION MAKING - ED course Complexity details: considered differential (Ureteral injury, stone, UTI, appendicitis, post-procedural pain) ED course: Pt is uncomfortable but non-toxic appearing. CT shows no obstruction or obvious significant ureteral injury, it does show ureteral dilation and no obstruction. After a dose of pain medications patient is feeling improved and her abdomen exam is benign. I spoke to her urologist and reviewed the case, he states that pain after stent removal is expected, and occasionally is caused by passing debris. Dilation can be residual. UA shows possible infection, given her recent instrumentation we will cover with antibiotics, ceftriaxone given and cefdinir prescribed. Labs notable for leukocytosis, which is non-specific in the setting of her pain, and pt continues to feel improved. Creatinine is normal. I discussed her results, and the need for continued close urologic follow up. If she is having continued pain or any other concerning symptoms she plans to go to [place] this evening or tomorrow for re-evaluation by her urologist. If she is having continued improvement she plans to follow up outpatient closely. I reviewed strict return precautions and patient was discharged home in the care of family. Departure - Departure Disposition: 01 Home, Self Care Clinical Impression: Flank pain, Pyelonephritis Condition: Good Follow-Up: Ritchie Mendoza MD [Physician No Access] - Within 1 week (Call tomorrow for follow up) Prescriptions: Cefdinir 300 mg PO BID #14 capsule Ondansetron Odt [Zofran] 4 mg TL Q6H PRN #10 tablet PRN Reason: Nausea / Vomiting Comments: You were seen today for flank pain. Your CT shows some inflammation of the ureter where your stent was removed, urine shows potentially an infection. We do not see signs of a blockage at this time. Please take the antibiotic, you may also take the Zofran for nausea. You may take [id number] pain relievers as well. Please follow-up with your urologist as scheduled. Return to the emergency department if you are having any worsening symptoms, fever, persistent vomiting despite medications, or any other concerning symptoms Discharge Date/Time: 09/13/19 20:32
[2019-09-13 16:02] LABS: CLARITY,URINE HAZY (CLEAR)
[2019-09-13 16:06] LABS: HCG UR QUAL NEGATIVE
[2019-09-13 16:16] LABS: BACTERIA,URINE Moderate /HPF (None Seen); SQUAMOUS EPITHELIAL CELL,UR FEW Squamous (<= Few)
[2019-09-13] MEDS ORDERED: MORPHINE 2 MG/ML CARPUJECT IVP STA ×2 (16:17→19:40)
[2019-09-13] MEDS ORDERED: SODIUM CHLORIDE 0.9% 1,000 ML IV ONE (16:17)
[2019-09-13] MEDS ORDERED: ONDANSETRON 4 MG/2 ML VIAL IVP STA ×2 (16:17→19:40)
[2019-09-13 16:19] LABS: BASOPHILS # (AUTO) 0.1 10^3/uL (0.0-0.1); BASOPHILS % (AUTO) 0.8 %; EOSINOPHILS # (AUTO) 0.3 10^3/uL (0.0-0.7); EOSINOPHILS % (AUTO) 1.8 %; HGB - HEMOGLOBIN 14.1 g/dL (12.0-16.0); LYMPHOCYTES # (AUTO) 2.2 10^3/uL (1.5-3.5); MEAN CORPUSCULAR HEMOGLOBIN 29.7 pg (27.0-31.0); MEAN CORPUSCULAR HGB CONC 32.9 g/dL (32.0-36.0); MEAN CORPUSCULAR VOLUME 90.3 fL (81.0-99.0); MEAN PLATELET VOLUME 8.7 fL (7.9-10.8); MONOCYTES # (AUTO) 0.9 10^3/uL (0.0-1.0); MONOCYTES % (AUTO) 5.7 %; NEUTROPHILS # (AUTO) 12.1 10^3/uL (1.5-6.6); PLT - PLATELET COUNT 364 10^3/uL (130-450); RED BLOOD COUNT 4.74 10^6/uL (4.20-5.40); RED CELL DISTRIBUTION WIDTH 13.3 % (12.0-15.0); WHITE BLOOD COUNT 15.7 x10^3/uL (4.8-10.8)
[2019-09-13 16:32] LABS: ALBUMIN 4.8 g/dL (3.2-5.5); ALBUMIN/GLOBULIN RATIO 1.6 (1.0-2.2); BILIRUBIN,TOTAL 0.8 mg/dL (0.2-1.0); CALCIUM 9.9 mg/dL (8.5-10.3); CREATININE 0.6 mg/dL (0.4-1.0); TOTAL PROTEIN 7.8 g/dL (6.7-8.2)
[2019-09-13] MEDS ORDERED: IOVERSOL 320 100 ML VIAL IVP ONE ×2 (17:02→17:18)
--- NOTE | 2019-09-13 17:53 | CT Report ---
Reason: Pain after ureteral stent removal Procedure Date: 09/13/2019 Accession Number: [id number] / [id number] Procedure: CT - Abdomen/Pelvis W CPT Code: Final Report FULL RESULT: EXAM: CT ABDOMEN AND PELVIS EXAM DATE: 09/13/2019 05:13 PM. CLINICAL HISTORY: Pain after ureteral stent removal. COMPARISONS: ABDOMEN/PELVIS W/O 08/15/2019 6:40 PM. TECHNIQUE: Routine helical CT imaging was performed through the abdomen and pelvis. IV contrast: OPTI 320 90ML. Enteric contrast: No. Reconstructions: Coronal and sagittal. In accordance with CT protocol optimization, one or more of the following dose reduction techniques were utilized for this exam: automated exposure control, adjustment of mA and/or KV based on patient size, or use of iterative reconstructive technique. FINDINGS: Lung Bases: Unremarkable. Liver: Normal. No masses. Gallbladder/Bile Ducts: Unremarkable. Spleen: Normal. Pancreas: Normal. Adrenal Glands: Normal. Kidneys: Dilated right renal pelvis and right ureter up to distal ureteric level, with no distal obstructing mass or calculus. Mild mucosal enhancement of right urothelium, pyelitis to be considered in appropriate setting. Peritoneal Cavity/Bowel: Normal. No free fluid, free air or adenopathy. No masses or acute inflammatory process. The appendix is well visualized and normal. Pelvic Organs: Normal. The bladder and visualized pelvic organs are within normal limits. Vasculature: No aneurysms or other significant abnormality. Bones: No significant abnormality. Other: None. IMPRESSION: Dilated right renal pelvis and right ureter up to distal ureteric level, with no distal obstructing mass or calculus. Mild mucosal enhancement of right urothelium, pyelitis to be considered in appropriate setting. No other significant abnormality. RADIA
[2019-09-13] MEDS ORDERED: cephALEXin 250 MG CAPSULE PO STA (19:40)
[2019-09-13] MEDS ORDERED: cefTRIAXone 1 GM in SODIUM CHLORIDE 0.9% MINIBAG 100 ML IV STA (19:42)
[2019-09-13 20:06] VITALS: BP 119/62
== END 2019-09-13 20:32 | disposition home or self-care (01) ==
LOC: ED 15:24
DX: R10.31 Right lower quadrant pain (principal); N12 Tubulo-interstitial nephritis, not specified as acute or chronic; F17.200 Nicotine dependence, unspecified, uncomplicated; Z87.442 Personal history of urinary calculi; Z98.890 Other specified postprocedural states
CPT/HCPCS: 36415; 74177; 80053; 81001; 81025; 83690; 85025; 87086; 96361; 96374; 96375; 96376; 99283; 99284; Q9967; 81003

== ENCOUNTER 2022-11-17 07:00 | Outpatient (CLI) | payer MEDICAID | END 2022-11-17 23:59 | disposition home or self-care (01) | LOC: LAB.S 07:00 | PROVIDERS: ATTEND Registered Nurse | DX: R10.9 Unspecified abdominal pain (principal) | CPT/HCPCS: 87077; 87086; 87181 ==

== ENCOUNTER 2022-11-18 08:55 | Outpatient (CLI) | payer MEDICAID ==
[2022-11-18 10:19] LABS: BASOPHILS % (AUTO) 1.2 %; EOSINOPHILS % (AUTO) 0.3 %; HCT - HEMATOCRIT 44.4 % (37.0-47.0); HGB - HEMOGLOBIN 14.7 g/dL (12.0-16.0); LYMPHOCYTES # (AUTO) 0.7 10^3/uL (1.5-3.5); LYMPHOCYTES % (AUTO) 22.9 %; MEAN CORPUSCULAR HEMOGLOBIN 28.9 pg (27.0-31.0); MEAN CORPUSCULAR HGB CONC 33.1 g/dL (32.0-36.0); MEAN CORPUSCULAR VOLUME 87.2 fL (81.0-99.0); MEAN PLATELET VOLUME 9.5 fL (7.9-10.8); MONOCYTES # (AUTO) 0.2 10^3/uL (0.0-1.0); MONOCYTES % (AUTO) 4.6 %; NEUTROPHILS # (AUTO) 2.3 10^3/uL (1.5-6.6); NEUTROPHILS % (AUTO) 70.7 %; PLT - PLATELET COUNT 165 10^3/uL (130-450); RED BLOOD COUNT 5.09 10^6/uL (4.20-5.40); WHITE BLOOD COUNT 3.2 x10^3/uL (4.8-10.8)
[2022-11-18 10:32] LABS: ALBUMIN 4.5 g/dL (3.2-5.5); ALBUMIN/GLOBULIN RATIO 1.5 (1.0-2.2); BILIRUBIN,TOTAL 0.7 mg/dL (0.2-1.0); CALCIUM 8.8 mg/dL (8.5-10.3); CREATININE 0.6 mg/dL (0.4-1.0); POTASSIUM 3.3 mmol/L (3.5-5.0); TOTAL PROTEIN 7.6 g/dL (6.7-8.2)
== END 2022-11-18 08:56 | disposition home or self-care (01) ==
LOC: LAB 08:55
PROVIDERS: ATTEND Registered Nurse
DX: N12 Tubulo-interstitial nephritis, not specified as acute or chronic (principal); R10.9 Unspecified abdominal pain
CPT/HCPCS: 36415; 80053; 85025; 87086

== ENCOUNTER 2023-12-04 14:12 | Outpatient (CLI) | payer MEDICAID ==
[2023-12-04 20:03] LABS: BASOPHILS # (AUTO) 0.1 10^3/uL (0.0-0.1); BASOPHILS % (AUTO) 1.6 %; EOSINOPHILS # (AUTO) 0.2 10^3/uL (0.0-0.7); EOSINOPHILS % (AUTO) 2.5 %; HCT - HEMATOCRIT 45.1 % (37.0-47.0); HGB - HEMOGLOBIN 14.3 g/dL (12.0-16.0); LYMPHOCYTES % (AUTO) 44.4 %; MEAN CORPUSCULAR HEMOGLOBIN 28.9 pg (27.0-31.0); MEAN CORPUSCULAR HGB CONC 31.7 g/dL (32.0-36.0); MEAN CORPUSCULAR VOLUME 91.1 fL (81.0-99.0); MEAN PLATELET VOLUME 9.7 fL (7.9-10.8); MONOCYTES # (AUTO) 0.5 10^3/uL (0.0-1.0); MONOCYTES % (AUTO) 7.4 %; NEUTROPHILS % (AUTO) 43.8 %; PLT - PLATELET COUNT 315 10^3/uL (130-450); RED BLOOD COUNT 4.95 10^6/uL (4.20-5.40); RED CELL DISTRIBUTION WIDTH 13.5 % (12.0-15.0); WHITE BLOOD COUNT 6.8 x10^3/uL (4.8-10.8)
[2023-12-04 20:21] LABS: ALBUMIN 4.6 g/dL (3.2-5.5); ALBUMIN/GLOBULIN RATIO 1.8 (1.0-2.2); BILIRUBIN,TOTAL 0.3 mg/dL (0.2-1.0); CALCIUM 9.4 mg/dL (8.5-10.3); CREATININE 0.6 mg/dL (0.6-1.3); POTASSIUM 3.9 mmol/L (3.5-4.5); TOTAL PROTEIN 7.1 g/dL (6.4-8.9)
[2023-12-04 21:07] LABS: DIFFERENTIAL COMMENT MANUAL=AUTO DIFF
[2023-12-04 21:46] LABS: BAND NEUTROPHILS % (MANUAL) 1 %; BASOPHILS # (MANUAL) 0.1 10^3/uL (0-0.1); BASOPHILS % (MANUAL) 1 %; EOSINOPHILS # (MANUAL) 0.1 10^3/uL (0-0.7); LYMPHOCYTES # (MANUAL) 3.1 10^3/uL (1.5-3.5); LYMPHOCYTES % (MANUAL) 43 %; MONOCYTES # (MANUAL) 0.6 10^3/uL (0.0-1.0); NEUTROPHILS # (MANUAL) 2.9 10^3/uL (1.5-6.6); PLATELET ESTIMATE, MANUAL NORMAL (130-450,000) (NORMAL); PLATELET MORPHOLOGY NORMAL APPEARANCE (NORMAL); RBC MORPHOLOGY (MULTIPLE) NORMAL APPEARANCE (NORMAL); REACTIVE LYMPHS % (MANUAL) 3 %
== END 2023-12-04 14:13 | disposition home or self-care (01) ==
LOC: LAB.S 14:12
PROVIDERS: ATTEND Obstetrics & Gynecology
DX: Z01.812 Encounter for preprocedural laboratory examination (principal)
CPT/HCPCS: 36415; 80053; 85025

== ENCOUNTER 2023-12-07 07:11 | Day surgery (SDC) | payer MEDICAID ==
[2023-12-07] MEDS ORDERED: LIDOCAINE 1%-EPI 1:100000 20 ML MDV ONE (07:23)
[2023-12-07] MEDS ORDERED: LACTATED RINGERS 1,000 ML IV ONE ×3 (07:36→09:12)
[2023-12-07] MEDS ORDERED: LIDOCAINE 1%-EPI 1:100000 50 ML VIAL SUBQ ONE ×2 (07:51)
[2023-12-07 07:57] LABS: HCG UR QUAL NEGATIVE
[2023-12-07] MEDS ORDERED: MIDAZOLAM 2 MG/2 ML VIAL ONE (08:11)
[2023-12-07] MEDS ORDERED: KETOROLAC 30 MG/ML VIAL ONE (08:11)
[2023-12-07] MEDS ORDERED: fentaNYL 100 MCG/2 ML VIAL ONE ×2 (08:11→10:04)
[2023-12-07] MEDS ORDERED: KETAMINE 200 MG/20 ML VIAL ONE (08:11)
[2023-12-07] MEDS ORDERED: LIDOCAINE-PF 2% 10 ML AMP SUBQ ONE (08:11)
[2023-12-07] MEDS ORDERED: ROCURONIUM 50 MG/5 ML VIAL ONE (08:11)
[2023-12-07] MEDS ORDERED: ONDANSETRON 4 MG/2 ML VIAL ONE (08:11)
[2023-12-07] MEDS ORDERED: PROPOFOL 200 MG/20 ML VIAL IVP ONE (08:11)
[2023-12-07] MEDS ORDERED: DEXAMETHASONE 4 MG/ML VIAL ONE (08:11)
[2023-12-07] MEDS ORDERED: MORPHINE 2 MG/ML CARPUJECT IVP PRN (08:12)
[2023-12-07] MEDS ORDERED: ATROPINE ABBOJECT 1 MG/10 ML SYRINGE IVP PRN (08:12)
[2023-12-07] MEDS ORDERED: ONDANSETRON 4 MG/2 ML VIAL IVP PRN (08:12)
[2023-12-07] MEDS ORDERED: NALOXONE 0.4 MG/ML VIAL IVP PRN (08:12)
--- NOTE | 2023-12-07 08:12 | ANESTHESIA ---
Pre-Anesthesia VS, & Labs - Diagnosis desires sterilization - Procedure lap nathaly salpingectomy Vital Signs: Temp Pulse Resp BP Pulse Ox O2 Flow Rate 36.5 C 67 18 134/73 H 98 0 12/07/23 07:42 12/07/23 07:42 12/07/23 07:42 12/07/23 07:42 12/07/23 07:42 12/07/23 07:42 Height: 5 ft Weight (kg): 48.9 kg Body Mass Index: 21.0 BMI Classification: Normal - NPO >8 hours - Is Patient ?: No - Lab Results Lab results reviewed: Yes Home Medications and Allergies Home Medications: Ambulatory Orders No Known Home Medications 12/01/23 No Known Home Medications 12/01/23 Allergies/Adverse Reactions: Allergies Allergy/AdvReac Type Severity Reaction Status Date / Time amoxicillin Allergy Anaphylaxis Verified 12/07/23 07:48 Penicillins Allergy Anaphylaxis Verified 12/07/23 07:48 Anes History & Medical History - Anesthetic History Anesthesia Complications: reports: No previous complications - Medical History Cardiovascular: reports: None Pulmonary: reports: None Gastrointestinal: reports: None Urinary: reports: Chronic bladder infection, Kidney stones, Other Neuro: reports: None Musculoskeletal: reports: None Endocrine/Autoimmune: reports: None Skin: reports: Other Smoking Status: Current every day smoker Psychosocial: reports: Cannabis (daily, heavy use) History of Cancer?: No - Surgical History Urologic: reports: Kidney stents Dermatologic: reports: Skin cancer surgery Exam General: Alert, Oriented x3, Cooperative, No acute distress Dental: Dentures full Upper, Dentures full Lower Mouth Openin Fingerbreadth Neck Mobility: Normal Mallampati classification: I Thyromental Distance: 4-6 cm Mental/Cognitive Status: Alert/Oriented X3, Normal for patient Plan Anesthesia Type: General Consent for Procedure(s) Verified and Reviewed: Yes Code Status: Attempt Resuscitation ASA classification: 2-Mild systemic disease Is this case an emergency?: No
[2023-12-07] MEDS ORDERED: LACTATED RINGERS 1,000 ML IV SCH (09:00)
[2023-12-07] MEDS ORDERED: SUGAMMADEX 200 MG/2 ML VIAL IVP ONE (09:06)
[2023-12-07] MEDS ORDERED: oxyCODONE 5 MG TABLET PO PRN (09:21)
--- NOTE | 2023-12-07 09:21 | OPERATIVE REPORT ---
Operative Report - General Procedure Date: 12/07/23 - Other Other Information/Narrative: OPERATIVE NOTE Pre-operative diagnosis: 1. satisfied parity Procedure: laparoscopic tubal ligation - salpingectomy Post-operative diagnosis: same as above Surgeon: Shanna Cone Chocolate Dipper: None Anesthesia: General Findings: no notable adhesions normal ovaries b/l normal appearing uterus normal tubes prior to removal Complications: None apparent EBL: minimal UOP: none - voided prior to entry into the OR Specimen: R&L tubes in same specimen Disposition: Stable, to PACU Procedure in detail: After risks benefits and alternatives, as well as indication for procedure and anticipated post-operative recovery course was discussed with the patient informed consent was obtained and patient was taken to the operating theater where general anesthesia was administered without difficulty. Pt was prepared and draped in normal sterile fashion. Supine. Prior to skin incision surgical time out was performed, all persons in the operating theater participated in time out and agreed. Infraumbilical skin incision made with scalpel. Direct visualization was utilized to insert 5mm port. Peritoneum insufflated. Pelvis inspected, no notable adhesions. 5mm port placed suprapubically and in the right lower quadrant. Atraumatic grasper utilized to reveal aforementioned findings. Ligasure used to remove R & L tubes bilaterally without difficulty. Hemostasis achieved. Reinspected pelvis, all hemostatic. Pt taken out of trendelenberg position, insufflation released from abdomen, ports removed. Skin closed with 4.0 monocryl. Skin hemostatic, local anesthesia placed around incisions incisions dressed with bandaids x3 Injected with 3.3cc of lidocaine with epi at each site. Pt tolerated procedure well. All counts correct. Pt to PACU in stable condition. Andrew called to discuss events of surgery, per prior approval from patient
[2023-12-07] MEDS: HYDROmorphone 0.5 MG/0.5 ML SYRINGE IVP PRN ×2 (09:50→10:15)
[2023-12-07] MEDS ORDERED: HYDROmorphone 0.5 MG/0.5 ML SYRINGE ONE ×2 (09:56→10:10)
[2023-12-07] MEDS: fentaNYL 100 MCG/2 ML VIAL IVP PRN ×2 (10:00→10:08)
[2023-12-07 10:45] VITALS: BP 100/80; O2SAT 98
--- NOTE | 2023-12-07 14:32 | ANESTHESIA POST OP EVALUATION ---
Anesthesia Post Eval - Post Anesthesia Eval Vitals: Last Vital Signs Temp 36 C L 12/07/23 10:26 Pulse 79 12/07/23 10:39 Resp 14 12/07/23 10:39 BP 100/80 12/07/23 10:39 Pulse Ox 98 12/07/23 10:39 O2 Flow Rate 0 12/07/23 07:42 CV Function Including HR & BP: Stable Pain Control: Satisfactory Nausea & Vomiting: Negative Mental Status: Baseline Respiratory Status: Airway Patent Hydration Status: Satisfactory Anesthesia Complications: None
== END 2023-12-07 07:12 | disposition home or self-care (01) ==
LOC: SDS 07:11
PROVIDERS: ATTEND Obstetrics & Gynecology
PROC: 0UB74ZZ Excision of Bilateral Fallopian Tubes, Percutaneous Endoscopic Approach (ICD-10-PCS; principal; 2023-12-07 08:15)
DX: Z30.2 Encounter for sterilization (principal); F17.200 Nicotine dependence, unspecified, uncomplicated; Z32.02 Encounter for pregnancy test, result negative
CPT/HCPCS: 58661; 81025; J1170; J3490; J7120

== ENCOUNTER 2023-12-29 07:00 | Outpatient (CLI) | payer MEDICAID ==
--- NOTE | 2023-12-29 13:07 | XRAY Report ---
PROCEDURE: Finger(s) LT INDICATIONS: LEFT MIDDLE FINGER PAIN TECHNIQUE: AP hand, 3 views of the finger(s) acquired. COMPARISON: None. FINDINGS: Bones: No fractures or dislocations. No suspicious bony lesions. Soft tissues: No suspicious soft tissue calcifications or masses. IMPRESSION: No acute bony abnormality. Reviewed by: Delmer Juarez MD on 12/29/2023 1:06 PM [facility] Approved by: Delmer Juarez MD on 12/29/2023 1:06 PM RUST Station ID: [id number]
== END 2023-12-29 23:59 | disposition home or self-care (01) ==
LOC: DI.S 07:00
PROVIDERS: ATTEND Registered Nurse
DX: M79.645 Pain in left finger(s) (principal)